=== PATIENT | female | born 1970 | race Caucasian/White ===

== ENCOUNTER 2018-03-27 07:30 | Observation (INO) | payer OTHER ==
[~2018-03-27] VITALS: Ht 172.7 cm; Wt 87.7 kg
[~2018-03-27 07:30] MED LIST: ESCI20TA PO; IBUP-1689 PO
[2018-03-27] MEDS ORDERED: CeFAZolin 2 GM/DEXTROSE 50 ML IV ONE ×2 (08:00→09:03)
[2018-03-27] MEDS ORDERED: RINGERS SOLUTION,LACTATED 1,000 ML IV ONE ×2 (08:00→09:02)
[2018-03-27] MEDS ORDERED: MIDAZOLAM HCL 2 MG/2 ML VIAL IVP ONE (08:56)
[2018-03-27] MEDS ORDERED: KETAMINE HCL 50 MG/ML 10 ML VIAL IVP ONE (08:56)
[2018-03-27] MEDS ORDERED: CloNIDine HCL 0.2 MG TABLET PO ONE (10:30)
[2018-03-27] MEDS ORDERED: CloNIDine HCL 0.1 MG TABLET PO ONE (10:30)
[2018-03-27] MEDS ORDERED: BUPIVACAINE HCL/PF 0.5% 30 ML VIAL ONE (10:37)
[2018-03-27] MEDS ORDERED: VANCOMYCIN HCL 1 GM/VIAL ONE (11:05)
[2018-03-27] MEDS ORDERED: DEXAMETHASONE SOD PHOS 4 MG/ML VIAL IVP PRN (11:15)
[2018-03-27] MEDS ORDERED: BUPIVACAINE LIPOSOME/PF 1.3%-13.3MG/ML SUSPENSION 20 ML VIAL INJ ONE (11:15)
[2018-03-27] MEDS ORDERED: MAG HYDROX/AL HYDROX/SIMETH 30 ML SUSP UDCUP PO PRN (11:15)
[2018-03-27] MEDS ORDERED: ZOLPIDEM TARTRATE 10 MG TABLET PO PRN (11:15)
[2018-03-27] MEDS ORDERED: CYCLOBENZAPRINE HCL 10 MG TABLET PO PRN (11:45)
[2018-03-27] MEDS ORDERED: MEPERIDINE HCL/PF 25 MG/0.5 ML AMP IVP PRN (11:45)
[2018-03-27] MEDS ORDERED: HYDROmorphone 2 MG/ML SYRINGE IVP PRN ×2 (11:45)
[2018-03-27] MEDS ORDERED: FentaNYL CITRATE-PF 100 MCG/2 ML VIAL IVP PRN (11:45)
[2018-03-27] MEDS ORDERED: ONDANSETRON HCL 4 MG/2 ML VIAL IVP ONE (12:00)
[2018-03-27] MEDS ORDERED: GLYCOPYRROLATE 0.2 MG/ML VIAL IM ONE (12:00)
[2018-03-27] MEDS ORDERED: NEOSTIGMINE METHYLSULFATE 1 MG/ML 10 ML VIAL IVP ONE (12:00)
[2018-03-27] MEDS ORDERED: LIDOCAINE/PF 2% 5 ML VIAL INJ ONE (12:00)
[2018-03-27] MEDS ORDERED: EPHEDrine SULFATE 50 MG/ML VIAL IM ONE (12:00)
[2018-03-27] MEDS ORDERED: PROPOFOL 1% 20 ML VIAL IVP ONE (12:00)
[2018-03-27] MEDS ORDERED: ROCURONIUM BROMIDE 10 MG/ML 5 ML VIAL IVP ONE (12:00)
[2018-03-27] MEDS ORDERED: DEXAMETHASONE SOD PHOS 4 MG/ML VIAL IVP ONE (12:00)
[2018-03-27 13:34] VITALS: BP 95/53
[2018-03-27 16:00] VITALS: BP 125/73
[2018-03-27] MEDS: ACETAMINOPHEN 1000 MG/ISO-OSM 100 ML IV SCH ×2 (17:06→22:41)
[2018-03-27 19:57] VITALS: BP 99/56
[2018-03-27] MEDS: OXYGEN THERAPY IH SCH (20:33)
[2018-03-27] MEDS: DOCUSATE SODIUM 100 MG CAPSULE PO SCH (20:33)
[2018-03-27 23:46] VITALS: BP 99/56
[2018-03-28 04:28] VITALS: BP 92/57
[2018-03-28] MEDS: ACETAMINOPHEN 1000 MG/ISO-OSM 100 ML IV SCH ×2 (04:34→11:00)
[2018-03-28 07:29] VITALS: BP 95/51
[2018-03-28] MEDS: OXYGEN THERAPY IH SCH (08:00)
[2018-03-28] MEDS: DOCUSATE SODIUM 100 MG CAPSULE PO SCH (08:01)
[2018-03-28] MEDS: OxyCODONE HCL/ACETAMINOPHEN 10-325 MG TABLET PO PRN ×2 (08:36→12:10)
[2018-03-28 11:33] VITALS: BP 98/54
== END 2018-03-28 10:36 | disposition home or self-care (01) ==
LOC: 4E 08:55
PROVIDERS: ADMIT Orthopaedic Surgery Orthopaedic Surgery of the Spine; ATTEND Orthopaedic Surgery Orthopaedic Surgery of the Spine
DX: M48.061 Spinal stenosis, lumbar region without neurogenic claudication (principal)
CPT/HCPCS: 63047; 63048 ×3; 87081; 96374; 96375; 96376 ×2; 97161; 97165; 97530; 97535; C9290; G0238; G0378 ×2; J0131 ×2; J0690 ×2; J1100; J1170; J2250; J2405; J2704; J3370; J3490 ×6; J7120; Z7610